=== PATIENT | female | born 1990 | race African-American/Black ===

== ENCOUNTER 2024-05-09 14:50 | Emergency (ER) | payer OTHER ==
[~2024-05-09] VITALS: Ht 162.6 cm; Wt 58.0 kg
[2024-05-09 14:57] VITALS: O2SAT 96
[2024-05-09] MEDS: SODIUM CHLORIDE 0.9% 1,000 ML IV ONE (15:13)
[2024-05-09] MEDS: EPINEPHRINE 1:1000 1 MG/ML AMP SUBCUT ONE (15:13)
[2024-05-09] MEDS: METHYLPREDNISOLONE SOD SUCC 125MG/2ML (ACT-O-VIAL) IV ONE (15:13)
[2024-05-09] MEDS: DIPHENHYDRAMINE 50MG/ML VIAL IV ONE (15:13)
[2024-05-09] MEDS ORDERED: EPIN0.3P3 IM (18:08)
[2024-05-09 18:41] VITALS: BP 124/77; PULSE 90; RESP 14; TEMP 36.7; O2SAT 100
== END 2024-05-09 18:47 | disposition home or self-care (01) ==
LOC: ER 14:50
DX: T78.3XXA Angioneurotic edema, initial encounter (principal); T78.40XA Allergy, unspecified, initial encounter; X58.XXXA Exposure to other specified factors, initial encounter
CPT/HCPCS: 99291; 96374; 96375; 96372; J2919; J1200; J3490; J7030